=== PATIENT | female | born 1940 | race Caucasian/White ===

== ENCOUNTER → 2018-04-25 10:20 | Outpatient (CLI) | payer MEDICARE, SELFPAY ==
--- NOTE | 2018-04-25 | DI.MG.S_ITS ---
BILATERAL DIGITAL SCREENING MAMMOGRAM WITH CAD: 04/25/2018 CLINICAL: Routine screening. Comparison is made to exams dated: 03/15/2017 mammogram, 03/13/2016 ultrasound, and 03/13/2016 mammogram - [facility]. There are scattered fibroglandular elements in both breasts. Current study was also evaluated with a Computer Aided Detection (CAD) system. No significant masses, calcifications, or other findings are seen in either breast. There has been no significant interval change. IMPRESSION: NEGATIVE There is no mammographic evidence of malignancy. A 1 year screening mammogram is recommended. NOTE: For mammograms, a report in lay terms will be sent to the patient. Approximately 15% of breast malignancies will not be visualized mammographically. In the management of a palpable breast mass, a negative mammogram must not discourage biopsy of a clinically suspicious lesion. Electronically Signed By: Lillian [email or web address]:04/25/2018 15:10:48 letter sent: Normal Exam ACR BI-RADS Category 1: Negative [id number]
== END ==
PROVIDERS: Family Provider Physician Assistant; PCP Physician Assistant; Visit Provider Physician Assistant
DX: Z12.31 Encounter for screening mammogram for malignant neoplasm of breast (principal); M81.0 Age-related osteoporosis without current pathological fracture
CPT/HCPCS: 77063; 77067; 77080

== ENCOUNTER 2019-12-13 14:50 | Emergency (ER) | payer MEDICARE, SELFPAY ==
[2019-12-13 14:50] VITALS: BP 151/68; PULSE 64; RESP 18; TEMP 36.7; O2SAT 99
--- NOTE | 2019-12-13 15:27 | ED_ITS ---
HPI - Fall General Chief Complaint: Fall Stated Complaint: Rib pain,Fall Time Seen by Provider: 12/13/19 15:14 Mode of arrival: EMS History of Present Illness HPI Narrative: CC: Fall with head neck and rib injury. HPI: The patient is a 79-year-old female who has a history of severe Alzheimer's disease and is unable to communicate. The history is being provided by the patient's of 60 years. He states that she does seem to understand and follow directions. The patient yesterday fell flat on her back from a standing position. She was found on her back in the bedroom at the foot of the bed. He states that when she fell there was a very large thud. However, yesterday morning at approximately 6:30 a.m. the patient was screaming and yelling complaining of being short of breath unable to catch her breath with her arms flailing in the air. The patient was standing and then fell into bed. She questioned the appeared unresponsive according to her and he thought that she had . She did not turn cyanotic. She did have a runny nose without purulence. She has had no fever chills or sweats. Last night he thought that she was hot but her arms and hands were very cold. There was no cyanosis. She abdominal pain nausea, vomiting, diarrhea, the or hematochezia. She has had no urinary problems. Related Data Previous Rx's Medication Instructions Recorded ibuprofen 600 mg PO QID PRN #20 tab 12/13/19 Allergies Allergy/AdvReac Type Severity Reaction Status Date / Time No Known Drug Allergies Allergy Verified 12/13/19 15:41 Review of Systems Review of Systems Narrative: The patient is unable to provide any history because of her severe Alzheimer's disease and mental status. All history is provided by the patient's . Patient History Medical History Alzheimer disease (Acute) Falls frequently (Acute) Urinary incontinence (Acute) Exam Narrative Exam Narrative: PHYSICAL EXAM: CONSTITUTIONAL: Awake, Alert, unable to speak or provide any history. She does not look ill or toxic. At time she is smiling HEAD: AT/NC EENT: PERRL, FROM of eyes, no discharge, no nystagmus No drainage from the ears, Tympanic membranes intact bilaterally, clear EAC No epistaxis or nasal drainage Oral mucosa is moist and pink, posterior pharynx is without erythema or exudate. NECK: Supple, no obvious JVD, Trachea is midline without stridor, no palpable LN or masses. SPINE: No gross deformity, no palpable tenderness of the cervical, thoracic, lumbar or sacral spine. No CVA tenderness. THORAX: No deformity, retractions, chest wall tenderness, subcutaneous air or crepitice. LUNGS: Clear with symmetrical breath sounds without respiratory distress HEART: Normal heart tones, regular rhythm and rate without murmur. ABDOMEN: Soft, non-tender, normal bowel sounds without guarding, rebound, rigidity or palpable mass or organomegaly. LYMPHATIC: no palpable lymph nodes EXTREMITIES: No edema, cyanosis, deformity or tenderness. SKIN: No rash, bruising, petechiae or purpura. NEURO: Awake, alert, oriented, conversive, cranial nerves II-XII are symmetrical and normal, moves all 4 extremities and is ambulatory Initial Vital Signs Initial Vital Signs: Vital Signs Temperature 98.0 F 12/13/19 14:50 Pulse Rate 64 12/13/19 14:50 Respiratory Rate 18 12/13/19 14:50 Blood Pressure 151/68 H 12/13/19 14:50 Pulse Oximetry 99 12/13/19 14:50 Course Course Course Narrative: 1527: Severe Alzheimer's disease. The patient is unable to speak but according to her understands. The patient's of 60 years provides the history. The patient fell this morning with alarmed thawed and was found on her back at the foot of the bed. She has acted as though she has had rib tenderness on the right and left sides. A CT of her head neck and chest will be obtained. Orders Ordered: Discontinued Medications Sodium Chloride (Normal Saline 0.9%) 1,000 mls @ 1,000 mls/hr IV BOLUS ONE Stop: 12/13/19 16:28 Last Infusion: 12/13/19 17:27 Dose: 0 mls/hr Documented by: Admin: 12/13/19 16:36 Dose: 1,000 mls/hr Documented by: BRIAN Ketorolac Tromethamine (Toradol) 30 mg IV NOW ONE Stop: 12/13/19 15:30 Last Admin: 12/13/19 16:35 Dose: 30 mg Documented by: BRIAN Vital Signs Vital signs: Vital Signs - 8 hr 12/13/19 14:50 12/13/19 15:35 Temperature 98.0 F Pulse Rate 64 71 Respiratory Rate 18 18 Blood Pressure 151/68 H Blood Pressure [Left Arm] 144/62 H Pulse Oximetry 99 98 MDM - Fall Medical Records Attestation: I reviewed the patient's medical records. Lab Data Attestation: I reviewed the patient's lab results. Result diagrams: 12/13/19 15:31 12/13/19 15:31 Labs: Lab Results 12/13/19 12/13/19 12/13/19 Range/Units 15:31 15:31 15:31 WBC 6.4 (4.5-11.0) X10^3/uL RBC 4.73 (4.0-5.2) X10^6/uL Hgb 13.6 (12.0-16.0) g/dL Hct 40.7 (36-46) % MCV 86.0 (80-100) fL MCH 28.6 (26-34) PG MCHC 33.3 (30-36) % RDW 14.1 (11.6-14.8) % Plt Count 174 (150-400) X10^3/uL Neut % (Auto) 63.7 (50-75) % Lymph % (Auto) 23.7 L (25-40) % [place] % (Auto) 9.7 (3-14) % Eos % (Auto) 1.9 L (2-4) % Baso % (Auto) 1.0 (0-2) % Neut # (Auto) 4100 (1484-0676) /uL Lymph # (Auto) 1500 (5725-1690) /uL [place] # (Auto) 600 (0-900) /uL Eos # (Auto) 100 (0-450) /uL Baso # (Auto) 100 (0-100) /uL Sodium 142 (137-145) mmol/L Potassium 4.2 (3.4-5.1) mmol/L Chloride 107 (98-107) mmol/L Carbon Dioxide 32 (22-32) mmol/L BUN 20 H (7-17) mg/dL Creatinine 0.70 (0.52-1.04) mg/dL Estimated GFR > 60.0 (>60) mL/min BUN/Creatinine Ratio 28.6 H (6-22) Glucose 104 (80-110) mg/dL Lactate (0.7-2.1) mmol/L Calcium 9.9 (8.4-10.2) mg/dL Total Bilirubin 0.9 (0.2-1.3) mg/dL AST 29 (14-36) IU/L ALT 20 (<35) IU/L Alkaline Phosphatase 56 (38-126) U/L Total Protein 7.4 (6.3-8.2) g/dL Albumin 4.1 (3.5-5.0) g/dL Globulin 3.3 (1.7-4.1) g/dL Albumin/Globulin Ratio 1.2 (1.0-2.8) Procalcitonin < 0.05 (<0.5) ng/mL Urine RBC (0-5/HPF) Urine WBC (0-5/HPF) Ur Squamous Epith Cells (0-5/HPF) Urine Bacteria (None) Ur Culture Indicated? 12/13/19 12/13/19 Range/Units 15:31 16:50 WBC (4.5-11.0) X10^3/uL RBC (4.0-5.2) X10^6/uL Hgb (12.0-16.0) g/dL Hct (36-46) % MCV (80-100) fL MCH (26-34) PG MCHC (30-36) % RDW (11.6-14.8) % Plt Count (150-400) X10^3/uL Neut % (Auto) (50-75) % Lymph % (Auto) (25-40) % [place] % (Auto) (3-14) % Eos % (Auto) (2-4) % Baso % (Auto) (0-2) % Neut # (Auto) (6871-4552) /uL Lymph # (Auto) (4860-9436) /uL [place] # (Auto) (0-900) /uL Eos # (Auto) (0-450) /uL Baso # (Auto) (0-100) /uL Sodium (137-145) mmol/L Potassium (3.4-5.1) mmol/L Chloride (98-107) mmol/L Carbon Dioxide (22-32) mmol/L BUN (7-17) mg/dL Creatinine (0.52-1.04) mg/dL Estimated GFR (>60) mL/min BUN/Creatinine Ratio (6-22) Glucose (80-110) mg/dL Lactate 0.8 (0.7-2.1) mmol/L Calcium (8.4-10.2) mg/dL Total Bilirubin (0.2-1.3) mg/dL AST (14-36) IU/L ALT (<35) IU/L Alkaline Phosphatase (38-126) U/L Total Protein (6.3-8.2) g/dL Albumin (3.5-5.0) g/dL Globulin (1.7-4.1) g/dL Albumin/Globulin Ratio (1.0-2.8) Procalcitonin (<0.5) ng/mL Urine RBC 0-1/hpf (0-5/HPF) Urine WBC 0-1/hpf (0-5/HPF) Ur Squamous Epith Cells 0-1 /hpf (0-5/HPF) Urine Bacteria None seen (None) Ur Culture Indicated? Cult not indicated Urine Dip Bedside Urine Glucose Negative Bedside Urine Bilirubin - Negative Bedside Urine Ketone +/- 5 Urine Specific [place] 1.020 Bedside Urine Occult Blood +/- Bedside Urine pH 6.0 Bedside Urine Protein +/- 15 Bedside Urine Urobilinogen +/- 1mg Bedside Urine Nitrite - Negative Bedside Urine Leukocytes - Negative Esterase ECG Data Attestation: I personally reviewed and interpreted this ECG as follows: Interpretation: The patient's EKG obtained on December 13 at 15:4 8:00 a.m. reveals a sinus rhythm with periodic PVCs. The ventricular rate is 63. Intervals are within normal limits QTC is within normal limits axis is 54. The patient has no acute diagnostic ST segment changes. She has nonspecific ST depressions in V3 through V6. T-waves are inverted in V1. There are no other acute diagnostic ST segment changes no signs of acute injury or ischemia. Discharge Plan Departure Patient Disposition: Home Clinical Impression: Bilateral contusion of ribs Dementia Qualifiers: Dementia type: Alzheimer's disease Alzheimer's disease onset: unspecified onset Dementia behavioral disturbance: without behavioral disturbance Qualified Code(s): G30.9 - Alzheimer's disease, unspecified Fall Qualifiers: Encounter type: initial encounter Qualified Code(s): W19.XXXA - Unspecified fall, initial encounter Injury of head and neck Qualifiers: Encounter type: initial encounter Qualified Code(s): S09.90XA - Unspecified injury of head, initial encounter Discharge Date/Time: 12/13/19 17:50 Instructions: DI for Concussion, DI for Alzheimer's Disease, How to Prevent Falls, DI for Closed Head Injury Activity Restrictions/Additional Instructions: Continue current home medications. For any pain and discomfort administer ibuprofen 600 every 6 hours as needed. Follow-up with your family physician. Prescriptions: New ibuprofen 600 mg tablet 600 mg PO QID PRN (Reason: fever or pain) Qty: 20 RF: 0 Referrals: Serenity Marroquin PA-C [Primary Care Provider] -
--- NOTE | 2019-12-13 15:29 | DI.CT.S_ITS ---
PROCEDURE: CT CHEST WO CON INDICATIONS: fall with right and left chest wall tenderness TECHNIQUE: Noncontrast 5 mm thick sections acquired from the pulmonary apices to the posterior costophrenic angles. 1 mm lung window, 5 mm thick coronal and sagittal and 7 mm axial MIP reformats were then acquired. For radiation dose reduction, the following was used: automated exposure control, adjustment of mA and/or kV according to patient size. COMPARISON: [facility], CT, CT HEAD/BRAIN WO CON, 12/13/2019, 15:46. [facility], CT, CT CERVICAL SPINE WO CON, 12/13/2019, 15:46. FINDINGS: Image quality: Excellent. Lungs and pleura: Mild dependent atelectasis is seen. No pleural effusions or pneumothorax. Central and peripheral airways are patent and normal in caliber. Mediastinum: Heart size is normal. No pericardial effusion. No mediastinal adenopathy by size criteria. Thoracic aorta and central pulmonary arteries are normal in size. Esophagus is normal in caliber. No hiatal hernia. Bones and chest wall: In this patient with this given history, scrutiny is given to the left ribs. No displaced left rib fractures are seen. No displaced fractures are seen elsewhere. No suspicious bony lesions. Mild pectus excavatum deformity can be seen. No vertebral body compression fractures. No axillary or supraclavicular adenopathy by size criteria. Thyroid gland demonstrates no significant noncontrast abnormality. Abdomen: Visualized upper abdominal solid organs and bowel loops appear normal in the absence of contrast. Atherosclerotic calcification is noted. IMPRESSION: Negative for displaced rib fractures. No pneumothorax. No significant posttraumatic abnormality can be seen. Mild dependent atelectasis. Dictated by: Valeriano Brand M.D. on 12/13/2019 at 15:28 Approved by: Valeriano Brand M.D. on 12/13/2019 at 15:31
--- NOTE | 2019-12-13 15:30 | DI.CT.S_ITS ---
PROCEDURE: CT HEAD/BRAIN WO CON INDICATIONS: Fall with head trauma TECHNIQUE: Noncontrast 4.5 mm thick angled axial sections acquired from the foramen magnum to the vertex, with coronal and sagittal reformats. For radiation dose reduction, the following was used: automated exposure control, adjustment of mA and/or kV according to patient size. COMPARISON: [facility], CT, CT CHEST WO CON, 12/13/2019, 15:46. [facility], CT, CT CERVICAL SPINE WO CON, 12/13/2019, 15:46. FINDINGS: Image quality: Excellent. CSF spaces: Basal cisterns are patent. No extra-axial fluid collections. The ventricles are symmetric in size and shape. Brain: No intracranial bleeds or masses. There is cerebral volume loss for age, with resultant ventricular and sulcal prominence. There are periventricular and deep white matter chronic small vessel ischemic changes. There is intracranial internal carotid artery atherosclerosis. Skull and face: Calvarium and visualized facial bones appear intact, without suspicious lesions. Sinuses: Visualized sinuses and mastoids are clear. IMPRESSION: No acute intracranial process is seen. No acute intracranial hemorrhage is seen. Note is made of age-appropriate brain parenchymal volume loss and chronic small vessel ischemic changes. Dictated by: Valeriano Brand M.D. on 12/13/2019 at 15:24 Approved by: Valeriano Brand M.D. on 12/13/2019 at 15:25
--- NOTE | 2019-12-13 15:31 | DI.CT.S_ITS ---
PROCEDURE: CT CERVICAL SPINE WO CON INDICATIONS: fall with neck trauma TECHNIQUE: Noncontrast 3 mm thick sections acquired from the skull base to the T4 level. Sagittal and coronal reformats were then constructed. For radiation dose reduction, the following was used: automated exposure control, adjustment of mA and/or kV according to patient size. COMPARISON: [facility], CT, CT HEAD/BRAIN WO CON, 12/13/2019, 15:46. [facility], CT, CT CHEST WO CON, 12/13/2019, 15:46. FINDINGS: Image quality: This examination is limited by involuntary motion artifact. Bones: No fractures or dislocations. Visualized superior ribs are intact. Degenerative changes and S-shaped scoliotic curvature can be seen. There is moderate to severe disc space narrowing seen at C3-C4, C5-C6, and C6-C7, with moderate disc space narrowing seen at C5-C6. Soft tissues: Prevertebral soft tissues are normal in thickness. No paravertebral hematomas. No apical pneumothoraces. IMPRESSION: Limited study demonstrating degenerative changes, without an acute abnormality identified. Dictated by: Valeriano Brand M.D. on 12/13/2019 at 15:26 Approved by: Valeriano Brand M.D. on 12/13/2019 at 15:28
[2019-12-13 15:35] VITALS: BP 144/62; PULSE 71; RESP 18; O2SAT 98
[2019-12-13 15:39] LABS: Add Manual Diff / Slide Review NO; Basophils Absolute Auto 100 /uL (0-100); Eosinophils Absolute Auto 100 /uL (0-450); Eosinophils Percent Auto 1.9 % (2-4); Hematocrit 40.7 % (36-46); Hemoglobin 13.6 g/dL (12.0-16.0); Lymphocytes Absolute Auto 1500 /uL (1100-4500); Lymphocytes Percent Auto 23.7 % (25-40); Mean Corpuscular HGB Conc 33.3 % (30-36); Mean Corpuscular Hemoglobin 28.6 PG (26-34); Monocytes Absolute Auto 600 /uL (0-900); Monocytes Percent Auto 9.7 % (3-14); Neutrophils Absolute Auto 4100 /uL (1500-7000); Neutrophils Percent Auto 63.7 % (50-75); Platelet Count 174 X10^3/uL (150-400); Red Blood Cell Count 4.73 X10^6/uL (4.0-5.2); Red Cell Distribution Width 14.1 % (11.6-14.8); White Blood Cell Count 6.4 X10^3/uL (4.5-11.0)
--- NOTE | 2019-12-13 15:39 | PC.NURSE ---
Pt normally is confused and unable to communicate verbally. Normally does not follow commands. Moving all extremitites equally well. Head to toe palpation revealed no s/s of pain. No s/s of trauma noted.
[2019-12-13 15:51] LABS: Lactate (Lactic Acid) 0.8 mmol/L (0.7-2.1)
[2019-12-13 15:52] LABS: Alanine Aminotransferase 20 IU/L (<35); Albumin 4.1 g/dL (3.5-5.0); Albumin Globulin Ratio 1.2 (1.0-2.8); Alkaline Phosphatase 56 U/L (38-126); Aspartate Aminotransferase 29 IU/L (14-36); BUN Creatinine Ratio 28.6 (6-22); Bilirubin Total 0.9 mg/dL (0.2-1.3); Blood Urea Nitrogen 20 mg/dL (7-17); Calcium 9.9 mg/dL (8.4-10.2); Carbon Dioxide 32 mmol/L (22-32); Chloride 107 mmol/L (98-107); Estimated Glomerular Filt Rate > 60.0 mL/min (>60); Globulin 3.3 g/dL (1.7-4.1); Glucose 104 mg/dL (80-110); HEMOLYSIS 18 (0-50); Potassium 4.2 mmol/L (3.4-5.1); Sodium 142 mmol/L (137-145); Total Protein 7.4 g/dL (6.3-8.2)
[2019-12-13 16:13] LABS: Procalcitonin < 0.05 ng/mL (<0.5)
[2019-12-13] MEDS: KETOROLAC 60 MG/2 ML VIAL 30 MG IV (16:35)
[2019-12-13] MEDS: SODIUM CHLORIDE 0.9% 1,000 ML 1000 ML IV (16:36)
[2019-12-13 16:53] VITALS: BP 122/78; PULSE 78; RESP 18; O2SAT 99
--- NOTE | 2019-12-13 16:57 | PC.NURSE ---
Moving all extremities equally well. Baseline mental status. No s/s of trauma.
[2019-12-13 17:07] LABS: Bacteria Urine None Seen
[2019-12-13 17:14] LABS: Culture Indicated Urine Cult Not Indicated; RBC Urine 0-1/HPF (0-5/HPF); Squamous Epithelial Cell Urine 0-1 /HPF (0-5/HPF); WBC Urine 0-1/HPF (0-5/HPF)
== END 2019-12-13 17:50 | disposition home or self-care (01) ==
PROVIDERS: Emergency Provider Emergency Medicine; Family Provider Physician Assistant; PCP Student in an Organized Health Care Education/Training Program
DX: S09.90XA Unspecified injury of head, initial encounter (principal); S20.219A Contusion of unspecified front wall of thorax, initial encounter; G30.9 Alzheimer's disease, unspecified; W18.30XA Fall on same level, unspecified, initial encounter
CPT/HCPCS: 36415; 70450; 71250; 72125; 80053; 81003; 81015; 83605; 84145; 85025; 93005; 96361; 96374; 99284; 99285; J1885

== ENCOUNTER 2019-12-23 17:58 | Emergency (ER) | payer MEDICARE, SELFPAY ==
[2019-12-23 18:06] VITALS: BP 119/58; PULSE 105; RESP 14; TEMP 36.9; O2SAT 97
--- NOTE | 2019-12-23 18:46 | DI.CT.S_ITS ---
PROCEDURE: CT HEAD/BRAIN WO CON INDICATIONS: Fall 10 days ago, currently not acting normal TECHNIQUE: Noncontrast 4.5 mm thick angled axial sections acquired from the foramen magnum to the vertex, with coronal and sagittal reformats. For radiation dose reduction, the following was used: automated exposure control, adjustment of mA and/or kV according to patient size. COMPARISON: [facility], CT, CT HEAD/BRAIN WO CON, 12/13/2019, 15:46. FINDINGS: Image quality: Excellent. CSF spaces: Basal cisterns are patent. No extra-axial fluid collections. The ventricles are symmetric in size and shape. Brain: No intracranial bleeds or masses. There is moderate cerebral volume loss for age, with resultant ventricular and sulcal prominence. There are moderate periventricular and deep white matter chronic small vessel ischemic changes. There is intracranial internal carotid artery atherosclerosis. Skull and face: Calvarium and visualized facial bones appear intact, without suspicious lesions. Sinuses: Visualized sinuses and mastoids are clear. IMPRESSION: Stable CT evaluation of the head without acute intracranial abnormalities. No evidence for acute or subacute intracranial hemorrhage. Stable age-related senescent changes and sequela of chronic small vessel ischemic disease. Dictated by: Devonte Cooper M.D. on 12/23/2019 at 19:38 Approved by: Devonte Cooper M.D. on 12/23/2019 at 19:40
[2019-12-23 19:18] VITALS: BP 126/98
[2019-12-23 19:56] LABS: Add Manual Diff / Slide Review NO; Basophils Absolute Auto 100 /uL (0-100); Basophils Percent Auto 0.6 % (0-2); Eosinophils Absolute Auto 100 /uL (0-450); Eosinophils Percent Auto 1.3 % (2-4); Hematocrit 38.9 % (36-46); Lymphocytes Absolute Auto 1700 /uL (1100-4500); Lymphocytes Percent Auto 16.3 % (25-40); Mean Corpuscular HGB Conc 33.6 % (30-36); Mean Corpuscular Hemoglobin 28.8 PG (26-34); Mean Corpuscular Volume 85.8 fL (80-100); Monocytes Absolute Auto 1100 /uL (0-900); Monocytes Percent Auto 10.4 % (3-14); Neutrophils Absolute Auto 7300 /uL (1500-7000); Neutrophils Percent Auto 71.4 % (50-75); Platelet Count 212 X10^3/uL (150-400); Red Blood Cell Count 4.53 X10^6/uL (4.0-5.2); Red Cell Distribution Width 14.1 % (11.6-14.8); White Blood Cell Count 10.3 X10^3/uL (4.5-11.0)
[2019-12-23 20:09] LABS: Alanine Aminotransferase 20 IU/L (<35); Albumin 3.8 g/dL (3.5-5.0); Albumin Globulin Ratio 1.2 (1.0-2.8); Alkaline Phosphatase 101 U/L (38-126); Aspartate Aminotransferase 28 IU/L (14-36); BUN Creatinine Ratio 47.1 (6-22); Bilirubin Total 0.4 mg/dL (0.2-1.3); Blood Urea Nitrogen 33 mg/dL (7-17); Calcium 10.2 mg/dL (8.4-10.2); Carbon Dioxide 30 mmol/L (22-32); Chloride 104 mmol/L (98-107); Estimated Glomerular Filt Rate > 60.0 mL/min (>60); Globulin 3.3 g/dL (1.7-4.1); Glucose 107 mg/dL (80-110); HEMOLYSIS < 15 (0-50); Lipase 48 U/L (23-300); Sodium 141 mmol/L (137-145); Total Protein 7.1 g/dL (6.3-8.2)
[2019-12-23 20:21] LABS: Troponin I < 0.012 ng/mL (0.01-0.034)
[2019-12-23 20:26] LABS: Procalcitonin 0.14 ng/mL (<0.5)
--- NOTE | 2019-12-23 21:28 | ED.GENADULT ---
HPI - General Adult General Chief complaint: Abdominal Pain Stated complaint: MD wants full work up Time Seen by Provider: 12/23/19 18:55 Source: family Mode of arrival: Wheelchair Limitations: other (Dementia) History of Present Illness HPI narrative: HPI review of systems is provided by the patient's was at bedside. His reported by the patient's they were sent to the emergency department by primary doctor for evaluation. Patient's states that she does have history of Alzheimer's disease. Approximately 10 days ago she sustained fall. Review of that note the emergency department does appear that she had a fairly extensive workup without any acute pathology noted. Patient's initially stated that since then she has been sleeping much more than normal. Even up to 18 hours in the day. This is what prompted him to contact her primary provider which then prompted the recommendation to come to the emergency department. Upon further evaluation does appear that this excessive somnolence has actually been going on for much longer than the fall 10 days ago. states she has been less active. She will sleep anywhere from 15-18 hours in the day. He states that she does seem to scratch at her skin. Related Data Home Medications Medication Instructions Recorded Confirmed Calcium Tablet 1 tab PO DAILY 12/23/19 12/23/19 alendronate 70 mg PO QWEEK 12/23/19 12/23/19 alprazolam 0.25 mg PO BID PRN 12/23/19 12/23/19 Previous Rx's Medication Instructions Recorded ibuprofen 600 mg PO QID PRN #20 tab 12/13/19 Allergies Allergy/AdvReac Type Severity Reaction Status Date / Time No Known Drug Allergies Allergy Verified 12/23/19 18:06 Review of Systems Review of Systems ROS Unobtainable: Unobtainable due to mental status/LOC Patient History Medical History Alzheimer disease (Acute) Falls frequently (Acute) Urinary incontinence (Acute) Social History caregiver/support person: Yes Exam Initial Vital Signs Initial Vital Signs: Vital Signs Temperature 98.5 F 12/23/19 18:06 Pulse Rate 105 H 12/23/19 18:06 Respiratory Rate 14 12/23/19 18:06 Blood Pressure 119/58 L 12/23/19 18:06 Pulse Oximetry 97 12/23/19 18:06 Const General: comfortable Limitations: other limitations (Nonverbal) HENMT Head: normal to inspection and normocephalic Resp Effort & Inspection: normal respiratory effort Cardio Rate: regular rate Skin Lesions: no lesions Rashes: no rashes Neuro Other: Is nonverbal, does not follow commands. Does move all 4 extremities spontaneously. His at baseline per Extrem General: normal to inspection Psych Appearance: grossly normal and well kempt Course Orders Ordered: ED Orders 12/23/19 18:46 CT head/brain wo con Stat 12/23/19 18:47 EKG-12 Lead Stat 12/23/19 19:47 Complete Blood Count AUTO DIFF Stat Comprehensive Metabolic Panel Stat Lipase Stat Procalcitonin Stat Troponin I Stat 12/23/19 20:15 Urinalysis and Microscopic Stat 12/23/19 21:44 Ammonia (NH3) Stat Vital Signs Vital signs: Vital Signs - 8 hr 12/23/19 19:18 12/23/19 21:48 12/23/19 22:21 Temperature 100.2 F H Pulse Rate 90 Respiratory Rate 17 Blood Pressure [Left Arm] 126/98 H 161/74 H Pulse Oximetry 98 Medical Decision Making Medical Records Medical records reviewed: Yes I reviewed the patient's medical records. Lab Data Lab results reviewed: Yes I reviewed the patient's lab results. Result diagrams: 12/23/19 19:47 12/23/19 19:47 Labs: Lab Results 12/23/19 12/23/19 12/23/19 Range/Units 19:47 19:47 19:47 WBC 10.3 (4.5-11.0) X10^3/uL RBC 4.53 (4.0-5.2) X10^6/uL Hgb 13.0 (12.0-16.0) g/dL Hct 38.9 (36-46) % MCV 85.8 (80-100) fL MCH 28.8 (26-34) PG MCHC 33.6 (30-36) % RDW 14.1 (11.6-14.8) % Plt Count 212 (150-400) X10^3/uL Neut % (Auto) 71.4 (50-75) % Lymph % (Auto) 16.3 L (25-40) % [place] % (Auto) 10.4 (3-14) % Eos % (Auto) 1.3 L (2-4) % Baso % (Auto) 0.6 (0-2) % Neut # (Auto) 7300 H (1005-3130) /uL Lymph # (Auto) 1700 (4050-4747) /uL [place] # (Auto) 1100 H (0-900) /uL Eos # (Auto) 100 (0-450) /uL Baso # (Auto) 100 (0-100) /uL Sodium 141 (137-145) mmol/L Potassium 4.0 (3.4-5.1) mmol/L Chloride 104 (98-107) mmol/L Carbon Dioxide 30 (22-32) mmol/L BUN 33 H (7-17) mg/dL Creatinine 0.70 (0.52-1.04) mg/dL Estimated GFR > 60.0 (>60) mL/min BUN/Creatinine Ratio 47.1 H (6-22) Glucose 107 (80-110) mg/dL Calcium 10.2 (8.4-10.2) mg/dL Total Bilirubin 0.4 (0.2-1.3) mg/dL AST 28 (14-36) IU/L ALT 20 (<35) IU/L Alkaline Phosphatase 101 (38-126) U/L Ammonia (9-30) umol/L Troponin I < 0.012 (0.01-0.034) ng/mL Total Protein 7.1 (6.3-8.2) g/dL Albumin 3.8 (3.5-5.0) g/dL Globulin 3.3 (1.7-4.1) g/dL Albumin/Globulin Ratio 1.2 (1.0-2.8) Lipase 48 (23-300) U/L Procalcitonin 0.14 (<0.5) ng/mL Urine Color Urine Appearance Urine pH (4.5-8.0) Ur Specific [place] (1.000-1.035) Urine Protein (Negative) Urine Glucose (UA) (Negative) g/dL Urine Ketones (NEGATIVE) Urine Occult Blood (Negative) Urine Nitrate (Negative) Urine Bilirubin (NEGATIVE) Urine Urobilinogen (0.2) E.U./dL Ur Leukocyte Esterase (NEGATIVE) Urine RBC (0-5/HPF) Urine WBC (0-5/HPF) Amorphous Sediment Urine Bacteria (None) Ur Culture Indicated? 12/23/19 12/23/19 Range/Units 20:15 21:44 WBC (4.5-11.0) X10^3/uL RBC (4.0-5.2) X10^6/uL Hgb (12.0-16.0) g/dL Hct (36-46) % MCV (80-100) fL MCH (26-34) PG MCHC (30-36) % RDW (11.6-14.8) % Plt Count (150-400) X10^3/uL Neut % (Auto) (50-75) % Lymph % (Auto) (25-40) % [place] % (Auto) (3-14) % Eos % (Auto) (2-4) % Baso % (Auto) (0-2) % Neut # (Auto) (2904-7746) /uL Lymph # (Auto) (3475-5624) /uL [place] # (Auto) (0-900) /uL Eos # (Auto) (0-450) /uL Baso # (Auto) (0-100) /uL Sodium (137-145) mmol/L Potassium (3.4-5.1) mmol/L Chloride (98-107) mmol/L Carbon Dioxide (22-32) mmol/L BUN (7-17) mg/dL Creatinine (0.52-1.04) mg/dL Estimated GFR (>60) mL/min BUN/Creatinine Ratio (6-22) Glucose (80-110) mg/dL Calcium (8.4-10.2) mg/dL Total Bilirubin (0.2-1.3) mg/dL AST (14-36) IU/L ALT (<35) IU/L Alkaline Phosphatase (38-126) U/L Ammonia < 9 L (9-30) umol/L Troponin I (0.01-0.034) ng/mL Total Protein (6.3-8.2) g/dL Albumin (3.5-5.0) g/dL Globulin (1.7-4.1) g/dL Albumin/Globulin Ratio (1.0-2.8) Lipase (23-300) U/L Procalcitonin (<0.5) ng/mL Urine Color Yellow Urine Appearance Sl cloudy Urine pH 7.5 (4.5-8.0) Ur Specific [place] 1.020 (1.000-1.035) Urine Protein Negative (Negative) Urine Glucose (UA) Negative (Negative) g/dL Urine Ketones Negative (NEGATIVE) Urine Occult Blood 1+ H (Negative) Urine Nitrate Negative (Negative) Urine Bilirubin Negative (NEGATIVE) Urine Urobilinogen 0.2 (0.2) E.U./dL Ur Leukocyte Esterase Negative (NEGATIVE) Urine RBC None seen (0-5/HPF) Urine WBC None seen (0-5/HPF) Amorphous Sediment 2+ Urine Bacteria None seen (None) Ur Culture Indicated? Cult not indicated Imaging Data CT scan - head: Radiologist's Impression: [address] [address] [address] Scan Report Signed Patient: Leatha Montague JMR#: [id number] : 1Acct:[id number] Age/Sex: 79 / FDate of Service: 12/23/19 Loc: ED Accession Number: [id number] Procedure: CT head/brain wo con Ordering Provider: Matthew Calles D.O. PROCEDURE: CT HEAD/BRAIN WO CON INDICATIONS: Fall 10 days ago, currently not acting normal TECHNIQUE: Noncontrast 4.5 mm thick angled axial sections acquired from the foramen magnum to the vertex, with coronal and sagittal reformats. For radiation dose reduction, the following was used: automated exposure control, adjustment of mA and/or kV according to patient size. COMPARISON: [facility], CT, CT HEAD/BRAIN WO CON, 12/13/2019, 15:46. FINDINGS: Image quality: Excellent. CSF spaces: Basal cisterns are patent. No extra-axial fluid collections. The ventricles are symmetric in size and shape. Brain: No intracranial bleeds or masses. There is moderate cerebral volume loss for age, with resultant ventricular and sulcal prominence. There are moderate periventricular and deep white matter chronic small vessel ischemic changes. There is intracranial internal carotid artery atherosclerosis. Skull and face: Calvarium and visualized facial bones appear intact, without suspicious lesions. Sinuses: Visualized sinuses and mastoids are clear. IMPRESSION: Stable CT evaluation of the head without acute intracranial abnormalities. No evidence for acute or subacute intracranial hemorrhage. Stable age-related senescent changes and sequela of chronic small vessel ischemic disease. Dictated by: Devonte Cooper M.D. on 12/23/2019 at 19:38 Approved by: Devonte Cooper M.D. on 12/23/2019 at 19:40 ECG Data Attestation: I personally reviewed and interpreted this ECG as follows: Prior ECG tracings: not available for review Interpretation: Sinus rhythm Ventricular rate of 91 Normal axis Normal QRS Nonspecific ST T changes MDM Narrative Medical decision making narrative: Patient's workup here in the emergency department is negative for any acute pathology. Does appear that her excessive somnolence has been going on for quite a bit longer than the 10 days ago that was initially reported by the . Had a long discussion with him regarding the patient's symptoms. I do suspect that this is just a worsening of her underlying dementia. He does have an appointment later this week with hospice care. His primary provider is involved. Provided him reassurance. Instructed him that he could return to the emergency department at any point for new or worsening symptoms. He expressed understanding and agreement. Discharge Plan Departure Patient Disposition: Home Clinical Impression: Alzheimer's dementia Discharge Date/Time: 12/23/19 20:58 Instructions: How to Prevent Falls Activity Restrictions/Additional Instructions: Recommend that you continue all of her medications as directed. Keep all of her scheduled medical appointments. Return to the emergency department for any new or worsening symptoms Prescriptions: No Action ibuprofen 600 mg tablet 600 mg PO QID PRN (Reason: fever or pain) Qty: 20 RF: 0 alendronate 70 mg Tablet 70 mg PO QWEEK RF: 0 Calcium Tablet 1 tab PO DAILY RF: 0 alprazolam 0.25 mg Tablet 0.25 mg PO BID PRN (Reason: Anxiety) RF: 0 Referrals: Serenity Marroquin PA-C [Primary Care Provider] -
[2019-12-23 21:48] VITALS: TEMP 37.9
[2019-12-23 22:03] LABS: Ammonia (NH3) < 9 umol/L (9-30)
[2019-12-23 22:21] VITALS: BP 161/74; PULSE 90; RESP 17; O2SAT 98
[2019-12-23 22:24] LABS: Bacteria Urine None Seen; RBC Urine None Seen (0-5/HPF); WBC Urine None Seen (0-5/HPF)
[2019-12-23 22:25] LABS: Appearance Urine UA SL CLOUDY; Bilirubin Urine UA NEGATIVE (NEGATIVE); Color Urine UA YELLOW; Glucose Urine UA NEGATIVE (Negative); Ketones Urine UA NEGATIVE (NEGATIVE); Leukocyte Esterase Urine UA NEGATIVE (NEGATIVE); Nitrite Urine UA NEGATIVE (Negative); Occult Blood Urine UA 1+ (Negative); Protein Urine UA NEGATIVE (Negative); Urobilinogen Urine UA 0.2 E.U./dL (0.2)
[2019-12-23 22:28] LABS: Amorphous Sediment Urine 2+; Culture Indicated Urine Cult Not Indicated; pH Urine UA 7.5 (4.5-8.0)
== END 2019-12-23 20:58 | disposition home or self-care (01) ==
PROVIDERS: Emergency Provider Emergency Medicine; Family Provider Physician Assistant; PCP Student in an Organized Health Care Education/Training Program; Referring Provider Internal Medicine
DX: G30.9 Alzheimer's disease, unspecified (principal); F02.80 Dementia in other diseases classified elsewhere, unspecified severity, without behavioral disturbance, psychotic disturbance, mood disturbance, and anxiety; R03.1 Nonspecific low blood-pressure reading; Z91.81 History of falling
CPT/HCPCS: 36415; 70450; 80053; 81001; 82140; 83690; 84145; 84484; 85025; 93005; 99283; 99285